=== PATIENT | female | born 1960 | race Caucasian/White ===

== ENCOUNTER 2018-12-12 13:29 | Emergency (ER) | payer OTHER ==
[~2018-12-12] VITALS: Ht 170.2 cm; Wt 63.5 kg
[~2018-12-12 13:29] MED LIST: HYDR-4922 PO; TAMS0.4C96 PO
[2018-12-12 13:36] VITALS: BP 152/95
--- NOTE | 2018-12-12 13:43 | NUR ---
PT. AMBULATED TO LOBBY , RR EVEN AND UNLABORED.
--- NOTE | 2018-12-12 15:14 | NUR ---
called no answer
--- NOTE | 2018-12-12 15:25 | NUR ---
CALLED PT FOR 2ND TIME;NO ANSWER
--- NOTE | 2018-12-12 16:00 | NUR ---
pt called for the third time no;answer
== END 2018-12-12 14:55 | disposition left against medical advice (07) ==
LOC: MED 13:29
DX: M54.5 Low back pain (principal); Z53.21 Procedure and treatment not carried out due to patient leaving prior to being seen by health care provider